=== PATIENT | female | born 1990 | race Two or more races ===

== ENCOUNTER 2024-06-17 11:25 | Emergency (ER) | payer OTHER ==
[~2024-06-17] VITALS: Ht 152.4 cm; Wt 86.2 kg
[2024-06-17] MEDS ORDERED: KETOROLAC TROMETHAMINE 60 MG VIAL IM STA (13:37)
== END 2024-06-17 14:02 | disposition home or self-care (01) ==
LOC: ER 11:27
DX: N94.5 Secondary dysmenorrhea (principal)

== ENCOUNTER 2025-03-17 21:51 | Emergency (ER) | payer OTHER ==
[~2025-03-17] VITALS: Ht 152.4 cm; Wt 86.2 kg
[2025-03-17] MEDS ORDERED: ORPHENADRINE CITRATE 30 MG/ML AMPUL IM STA (22:22)
[2025-03-17] MEDS ORDERED: TRAMADOL HCL 50 MG TABLET PO STA ×2 (22:22→22:57)
[2025-03-18 00:03] LABS: URINE APPEARANCE Clear; URINE BILIRRUBIN Negative (NEGATIVE); URINE BLOOD Large; URINE COLOR Yellow; URINE GLUCOSE Negative (NEGATIVE); URINE KETONE Trace (NEGATIVE); URINE LEUKOCYTE Negative; URINE NITRATE Negative; URINE PROTEIN 30 (NEGATIVE); URINE UROBILINOGEN 1.0 E.U./dl
[2025-03-18] MEDS ORDERED: KETOROLAC TROMETHAMINE 30 MG VIAL IV STA (00:04)
[2025-03-18] MEDS ORDERED: HYOSCYAMINE SULFATE 0.125 MG TAB.SUBL SL STA (00:04)
[2025-03-18] MEDS ORDERED: MORPHINE SULFATE 4 MG/ML VIAL IV STA (00:05)
[2025-03-18 00:07] LABS: URINE BACTERIA 769.1 uL (0.0-1933); URINE EPITHELIAL CELLS 6.3 uL (0.0-38.8); URINE RBC 918.1 uL (0.0-20.8); URINE WBC 9.9 uL (0.0-23.2)
[2025-03-18 00:10] LABS: URINE CAST 0.14 uL (0.0-1.40)
[2025-03-18 00:12] LABS: BASO % 0.4 % (0.1-1.2); EOS # 0.05 (0.04-0.54); EOS % 0.4 % (0.7-7.0); LYMPH # 2.02 (1.18-3.74); LYMPH % 17.9 % (19.3-53.1); MEAN PLATELET VOLUME 11.30 fl (9.4-12.4); MONO # 0.62 (0.24-0.82); MONO % 5.5 % (4.7-12.5); NEUT # 8.52 (1.56-6.13); NEUT % 75.5 % (34.0-71.1); RED CELL DISTRIBUTION WIDTH 11.7 % (11.6-14.4)
[2025-03-18 00:20] LABS: ALT/SGPT 31.0 U/L (12-78); AST/SGOT 19.0 U/L (15-37); BILIRUBIN TOTAL 0.28 mg/dL (0.3-1.2); BUN CREA RATIO 19.0 (7.0-25.0); CREATININE SERUM 0.77 mg/dL (0.55-1.02); GFR 85.31; GLOBULINA 4.0 G/DL (2.4-3.5); GLUCOSE FASTING 145.0 mg/dL (65-100); OSMOLALITY SERUM 283.0 MOSM/KG (275-295)
== END 2025-03-18 02:37 | disposition home or self-care (01) ==
LOC: ER 21:51
PROVIDERS: General Practice
DX: N20.1 Calculus of ureter (principal); M54.50 Low back pain, unspecified